=== PATIENT | female | born 1995 | race Two or more races ===

== ENCOUNTER 2018-12-03 15:43 | Emergency (ER) | payer SELFPAY ==
[~2018-12-03] VITALS: Ht 165.1 cm; Wt 56.7 kg
[2018-12-03] MEDS ORDERED: SPIR25TA6 PO (15:53)
[2018-12-03] MEDS ORDERED: birth control PO (15:54)
--- NOTE | 2018-12-03 16:02 | NUR ---
seen by dr fisher, exit care with prescriptions. discharged
[2018-12-03 16:04] VITALS: BP 111/74
== END 2018-12-03 16:05 | disposition home or self-care (01) ==
LOC: ER 15:45
DX: J02.9 Acute pharyngitis, unspecified (principal); Z79.899 Other long term (current) drug therapy
CPT/HCPCS: A4663